=== PATIENT | male | born 2000 | race Caucasian/White ===

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

== ENCOUNTER 2021-05-10 09:10 | Observation (INO) | payer OTHER ==
[~2021-05-10] VITALS: Ht 167.6 cm; Wt 59.0 kg
[~2021-05-10 09:10] MED LIST: AMOXICILLIN875 MG PO; ELIMITE 5% CREA60 GM TOP; OMEPRAZOLE20 M1 PO
[2021-05-10 10:11] LABS: HEMOGLOBIN 13.8 gm/dl (14.0-17.5); RED BLOOD COUNT 4.3 M/UL (4.20-5.50); WHITE BLOOD COUNT 5.7 K/UL (4.5-11.0)
[2021-05-10 10:36] LABS: BUN/CREATININE RATIO 8 (0-10)
[2021-05-10] MEDS ORDERED: PROAIR DIGIHAL90 MCG INH (15:53)
[2021-05-10] MEDS ORDERED: PROTONIX40 MG PO (15:53)
[2021-05-10] MEDS ORDERED: LITHIUM CARBON300 MG PO (17:56)
[2021-05-11 04:36] LABS: HEMOGLOBIN 13.3 gm/dl (14.0-17.5); RED BLOOD COUNT 4.2 M/UL (4.20-5.50)
[2021-05-11 04:40] LABS: WHITE BLOOD COUNT 8.2 K/UL (4.5-11.0)
[2021-05-11 04:54] LABS: BUN/CREATININE RATIO 8 (0-10)
== END 2021-05-11 13:57 | disposition home or self-care (01) ==
LOC: ER1 09:10 → M/S 15:14 → CDU 15:14 → M/S 21:57
PROVIDERS: Emergency Medicine; ADMIT Internal Medicine
DX: T56.891A Toxic effect of other metals, accidental (unintentional), initial encounter (principal); R11.2 Nausea with vomiting, unspecified; E87.6 Hypokalemia; E83.42 Hypomagnesemia; F19.10 Other psychoactive substance abuse, uncomplicated; J45.909 Unspecified asthma, uncomplicated; K21.9 Gastro-esophageal reflux disease without esophagitis; R94.31 Abnormal electrocardiogram [ECG] [EKG]; F17.200 Nicotine dependence, unspecified, uncomplicated; Z79.52 Long term (current) use of systemic steroids; Z79.899 Other long term (current) drug therapy; Z88.5 Allergy status to narcotic agent; Z88.1 Allergy status to other antibiotic agents; Z20.822 Contact with and (suspected) exposure to COVID-19
CPT/HCPCS: 36415; 71045; 80053; 80178; 80307; 81001; 82550; 82553; 83605; 83690; 83735; 84439; 84443; 84484; 85025; 93005; 96372; 96374; 96376; 99284; C9113; G0378; J1650; J2405; J7030; U0002